=== PATIENT | female | born 1990 | race Caucasian/White ===

== ENCOUNTER 2017-07-17 11:11 | Emergency (ER) | payer OTHER ==
[~2017-07-17] VITALS: Ht 170.2 cm; Wt 54.4 kg
== END 2017-07-17 13:16 | disposition home or self-care (01) ==
LOC: ER 11:11
DX: R05 Cough (principal); R07.81 Pleurodynia; Z87.891 Personal history of nicotine dependence
CPT/HCPCS: 71046; 99283